=== PATIENT | female | born 1975 | race Caucasian/White ===

== ENCOUNTER 2020-02-21 08:40 | Emergency (ER) | payer OTHER, SELFPAY ==
--- NOTE | ~2020-02-21 | XR_ITS ---
EXAMINATION: XR sternum min 2V DATE: 02/21/2020 09:33 INDICATION: Anterior chest injury. TECHNIQUE: 2 views of the sternum on 3 radiographs were obtained. COMPARISON: None. FINDINGS: Bone alignment is normal. No fracture. IMPRESSION: 1. Normal sternum. Reviewed, dictated and finalized at location A. IMPRESSION: 1. Normal sternum.
--- NOTE | ~2020-02-21 | XR_ITS ---
EXAMINATION: [id number] DATE: 02/21/2020 09:33 INDICATION: Chest injury. TECHNIQUE: A frontal view of the chest and 3 views of the right ribs were obtained. COMPARISON: None. FINDINGS: The chest demonstrates clear lungs without pneumonia, pleural effusion, or pneumothorax. Th e heart size is normal. IMPRESSION: 1. No rib fracture. Reviewed, dictated and finalized at location A. IMPRESSION: 1. No rib fracture.
[2020-02-21 08:47] VITALS: BP 155/73; PULSE 80; RESP 16; TEMP 37.3; O2SAT 100
--- NOTE | 2020-02-21 09:13 | ED.GENADULT ---
HPI - General Adult General Chief complaint: Fall Stated complaint: pain in chest due to fall Time Seen by Provider: 02/21/20 09:18 Source: patient Mode of arrival: ambulatory Limitations: no limitations History of Present Illness HPI narrative: 44-year-old female patient presents to the [facility] with complaints of right-sided chest pain after a fall about 5 days ago. Patient states that she was running across a picnic table and states that she tripped and fell. Patient states she actually hit her chin on the picnic table and fell onto her chest. Patient states an ambulance was called at the time however she refused to go to the hospital at that time. Patient noticed that she was having a lot of chest pain. Patient states over time she noticed that she had an abrasion to the right side of the chest and now has bruising all over the right breast. Patient states it does hurt with breathing. Denies any shortness of breath at this time. Denies any fevers, body aches or chills. Patient states she has been taking Tylenol, Motrin and alternating ice and heat to the area. Related Data Home Medications Medication Instructions Recorded Confirmed No Home Medications 02/21/20 02/21/20 Allergies Allergy/AdvReac Type Severity Reaction Status Date / Time No Known Allergies Allergy Mild Unverified 10/31/04 12:13 Review of Systems Review of Systems: Narrative: CONSTITUTIONAL: Denies fever, chills, or sweats. EYES: Denies visual changes, redness, or discharge. ENT: Denies rhinorrhea, congestion, sore throat, or otalgia. CARDIOVASCULAR: Positive right-sided chest pain from fall, denies palpitations, or edema. RESPIRATORY: Denies cough or dyspnea. GASTROINTESTINAL: Denies abdominal pain, nausea, vomiting, or diarrhea. GENITOURINARY: Denies dysuria or hematuria. SKIN: Denies rash or itching. MUSCULOSKELETAL: Denies back pain, joint pain, or myalgia. NEUROLOGIC: Denies headache, numbness, or weakness. PSYCHIATRIC: Denies anxiety or depression. [facility] Past Medical History Medical History (Updated 02/21/20 @ 10:01 by NICOLETTE Claros) depression Comments At the time of my signature I agree with nursing past medical history, surgical, social, and family history. There is no relevant family history pertinent to the presenting complaint. Exam Narrative: Exam Narrative: GENERAL: Well-appearing, well-nourished, and in no acute distress. HEAD: Normocephalic, atraumatic. Patient does have a laceration to the chin that is currently scabbed over EYES: PERRLA and EOMI. ENT: Nares clear, no rhinorrhea or epistaxis. Mucous membranes moist. NECK: Supple. No lymphadenopathy CHEST: CTA, no wheezing, rhonchi or rales, no orthopena or dyspnea. Able to speak in clear complete sentences, no retractions or accessory muscle use. No tripod positioning. Patient does have some surface trauma noted to the right side of the chest. Patient has an upside down L-shaped abrasion noted over the right side of the chest measuring approximately 4 x 3 cm. Patient does have some yellow old bruising noted over the right side of the chest more towards the sternum area. Patient does have tenderness to palpation of the mid sternum. No obvious tenderness on palpation to the ribs however she does have a lot of tenderness to the bruised area and unable to really palpate the ribs to the area really well. HEART: Regular rate and rhythm. No murmur heard. Normal peripheral pulses. ABDOMEN: Soft, nontender, nondistended, normal active bowel sounds. EXTREMITIES: Normal range of motion. No edema. SKIN: Warm, dry, no rash. NEURO: No focal deficits. Alert and oriented x3. Course Reevaluation(s) Reevaluation #1: Reevaluated patient after her x-rays are resulted. Discussed with her that there is no acute fractures or pneumonia noted to the x-rays. Discussed with patient that this most likely is just some bruising and muscle soreness from her fall. Discussed with monisha
--- NOTE | 2020-02-21 09:52 | PC.NURSE ---
PT DECLINED ICE FOR COMFORT
== END 2020-02-21 10:09 | disposition home or self-care (01) ==
PROVIDERS: Emergency Provider Nurse Practitioner Family; PCP Family Medicine
DX: S20.211A Contusion of right front wall of thorax, initial encounter (principal); W01.198A Fall on same level from slipping, tripping and stumbling with subsequent striking against other object, initial encounter
CPT/HCPCS: 71101; 71120; 99213; G0463